=== PATIENT | male | born 1950 | race Caucasian/White ===

== ENCOUNTER → 2020-12-21 07:13 | Outpatient (REF) | payer OTHER, SELFPAY | LOC: ANHLAB 07:13 | PROVIDERS: PCP Internal Medicine; Visit Provider Nurse Practitioner | DX: C44.219 Basal cell carcinoma of skin of left ear and external auricular canal (principal); C44.321 Squamous cell carcinoma of skin of nose | CPT/HCPCS: 88305; 88331 ==

== ENCOUNTER → 2021-03-01 06:56 | Outpatient (REF) | payer OTHER, SELFPAY | LOC: ANHLAB 06:56 | PROVIDERS: PCP Internal Medicine; Visit Provider Nurse Practitioner | DX: C44.319 Basal cell carcinoma of skin of other parts of face (principal) | CPT/HCPCS: 88305; 88331 ==

== ENCOUNTER 2024-09-16 13:27 | Outpatient (CLI) | payer SELFPAY ==
--- NOTE | ~2024-09-16 | MR_ITS ---
EXAMINATION: MR lumbar spine wo con DATE: 09/16/2024 14:03 INDICATION: Low back pain. Lumbar radiculopathy. TECHNIQUE: Magnetic resonance imaging (MRI) of the lumbar spine was performed without intravenous con trast. Sequences included sagittal T2-weighted FSE, sagittal T2-weighted FS FSE, sagittal T1-weighted FSE, and axial T2-weighted FSE. COMPARISON: None FINDINGS: There is 4 degrees levocurvature of lumbar spine. Vertebral body heights are normal. There is mildly decreased disc height at L3-L4, L4-L5, and L5-S1. The distal spinal cord signal intensity i s normal. The conus medullaris is at T12. The following disc levels are specifically discussed: L1-L2: The disc does not extend beyond the endplate margin. There is mild bilateral facet joint osteo arthritis. There is no neural foraminal stenosis. There is no central canal stenosis. L2-L3: The disc is mildly bulging. There is moderate right and mild left facet joint osteoarthritis. There is mild bilateral neural foraminal stenosis. There is no central canal stenosis. L3-L4: The disc is bulging and has an annular fissure. There is severe right and moderate left facet joint osteoarthritis. There is mild bilateral neural foraminal stenosis. There is mild central canal stenosis. L4-L5: The disc is bulging. There is severe bilateral facet joint osteoarthritis. There is a 5 mm syn ovial cyst of the left facet joint. There is moderate right and mild left neural foraminal stenosis. There is mild central canal stenosis. There is moderate stenosis of left lateral recess. L5-S1: The disc is bulging and has an annular fissure. There is severe bilateral facet joint osteoart hritis. There is mild bilateral neural foraminal stenosis. There is mild central canal stenosis. IMPRESSION: 1. Moderate lumbar spondylosis. Reviewed, dictated and finalized at location A. [facility]
== END 2024-09-16 13:28 | disposition home or self-care (01) ==
LOC: GOSHIMG 13:28
PROVIDERS: PCP Internal Medicine; Visit Provider Orthopaedic Surgery
DX: M47.26 Other spondylosis with radiculopathy, lumbar region (principal)
CPT/HCPCS: 72148